=== PATIENT | male | born 1960 | race Caucasian/White ===

== ENCOUNTER → 2018-10-03 | Outpatient (CLI) | payer BC ==
--- NOTE | 2018-10-03 09:06 | US ---
EXAMINATION TYPE: US abdomen complete DATE OF EXAM: 10/03/2018 COMPARISON: NONE CLINICAL HISTORY: RUQ pain R10.11. EXAM MEASUREMENTS: Liver Length: 19.1 cm Gallbladder Wall: 0.2 cm CBD: 0.3 cm Spleen: 10.4 cm Right Kidney: 12.0 x 4.8 x 5.3 cm Left Kidney: 11.8 x 4.6 x 5.6 cm Pancreas: Tail obscured by overlying bowel gas Liver: Increased attenuation, decreased visualization of vessels, hepatomegaly, hypoechoic area luis cent to gallbladder measuring 2.1 x 1.1 x 1.4cm, probable focal fatty sparring Gallbladder: wnl Evidence for sonographic Lyons's sign: no CBD: wnl Spleen: wnl Right Kidney: hyperechoic foci measuring 0.4 x 0.2 x 0.4cm, probable stone Left Kidney: wnl Upper IVC: wnl Abd Aorta: some portions obscured by overlying bowel gas, portions visualized wnl The intrahepatic portion of the IVC and proximal abdominal aorta are within normal limits. There is no evidence of cholelithiasis. Common bile duct is unremarkable. The visualized portions of the pa ncreas are homogenous. The spleen is unremarkable. Kidneys are symmetric and free of hydronephrosis . No renal lesions are seen. IMPRESSION: 1. Fatty infiltration with areas of focal fatty sparing.
== END ==
LOC: RADUSWWP 07:59
PROVIDERS: ATTEND Family Medicine
DX: R93.3 Abnormal findings on diagnostic imaging of other parts of digestive tract (principal)
CPT/HCPCS: 76700